=== PATIENT | female | born 1990 | race African-American/Black ===

== ENCOUNTER 2016-12-29 08:52 | Emergency (ER) | payer MEDICAID ==
[~2016-12-29] VITALS: Ht 165.1 cm; Wt 62.0 kg
[2016-12-29 09:30] VITALS: BP 121/80
== END 2016-12-29 13:04 | disposition home or self-care (01) ==
LOC: ER 12:54
DX: J02.9 Acute pharyngitis, unspecified (principal)
CPT/HCPCS: 99283

== ENCOUNTER 2017-01-15 17:22 | Emergency (ER) | payer MEDICAID ==
[~2017-01-15] VITALS: Ht 162.6 cm; Wt 60.0 kg
[2017-01-15 17:29] VITALS: BP 125/95
[2017-01-15] MEDS ORDERED: CEFTRIAXONE SODIUM 1 G/VIAL IM ONE (21:00)
[2017-01-15] MEDS ORDERED: BACITRACIN ZINC OINT UDPKT TOP ONE (21:30)
== END 2017-01-15 22:21 | disposition home or self-care (01) ==
LOC: ER 18:23
DX: J02.9 Acute pharyngitis, unspecified (principal); R10.9 Unspecified abdominal pain; H92.01 Otalgia, right ear
CPT/HCPCS: 87070; 87430; 96372; 99284; J0696